=== PATIENT | male | born 1955 | race Caucasian/White ===

== ENCOUNTER 2021-10-24 12:05 | Emergency (ER) | payer OTHER, MEDICARE ==
[~2021-10-24] VITALS: Ht 182.9 cm; Wt 143.0 kg
[2021-10-24] MEDS ORDERED: LISINOPRIL10 MG PO (13:13)
[2021-10-24] MEDS ORDERED: METFORMIN500 M2 PO (13:14)
[2021-10-24] MEDS ORDERED: ELIQUIS2.5 MG PO (13:14)
[2021-10-24] MEDS ORDERED: ULTRAM50 M1 PO (14:56)
[2021-10-24 15:16] VITALS: BP 101/75
== END 2021-10-24 15:24 | disposition home or self-care (01) | DRG 563 ==
LOC: ED 12:05
PROC: 2W3RX1Z Immobilization of Left Lower Leg using Splint (ICD-10-PCS; principal; 2021-10-24)
DX: S82.62XA Displaced fracture of lateral malleolus of left fibula, initial encounter for closed fracture (principal); I10 Essential (primary) hypertension; E11.9 Type 2 diabetes mellitus without complications; V28.4XXA Motorcycle driver injured in noncollision transport accident in traffic accident, initial encounter; Z79.84 Long term (current) use of oral hypoglycemic drugs